=== PATIENT | female | born 1965 | race Caucasian/White ===

== ENCOUNTER 2018-12-17 12:37 | Emergency (ER) | payer OTHER ==
[2018-12-17 13:45] VITALS: BP 106/81
--- NOTE | 2018-12-17 14:09 | UC ---
Respiratory Complaint HPI - HPI Summary HPI Summary: 53 ypo female with 3 days worth of sore throat last week that resolve < 48 hours ago developed fatigue/myalgia/nasal congestion and sore throat SHEPARD neighbor has flu - History of Current Complaint Chief Complaint: UCRespiratory Stated Complaint: SORE THROAT Time Seen by Provider: 12/17/18 13:35 Hx Obtained From: Patient Onset/Duration: Gradual Onset, Lasting Days Severity Initially: Mild Severity Currently: Moderate Pain Intensity: 5 Pain Scale Used: 0-10 Numeric Character: Cough: Nonproductive Aggravating Factors: Nothing Alleviating Factors: Nothing Associated Signs And Symptoms: Positive: Fever - tayler, Chills, URI, Nasal Congestion, Sinus Discomfort - Allergies/Home Medications Allergies/Adverse Reactions: Allergies Allergy/AdvReac Type Severity Reaction Status Date / Time No Known Allergies Allergy Verified 12/17/18 13:37 Home Medications: Home Medications Acetaminophen [Tylenol] 325 mg PO Q8HR PRN 12/17/18 [History Confirmed 12/17/18] Escitalopram * [Lexapro 10 mg (NF)] 5 mg PO DAILY 12/17/18 [History Confirmed ] Levothyroxine TAB* [Synthroid TAB*] 88 mcg PO 0800 12/17/18 [History Confirmed 12/17/18] Vitamin B Complex [Super B-50 Complex] 1 each PO DAILY 12/17/18 [History Confirmed 12/17/18] PMH/Surg Hx/FS Hx/Imm Hx Previously Healthy: Yes Cancer History: Other Other Cancer History: thyroid - Surgical History Surgical History: Yes Surgery Procedure, Year, and Place: THYROIDECTOMY DUE TO THYROID CA 2009 - Family History Known Family History: Positive: Hypertension - Social History Alcohol Use: Rare Substance Use Type: None Smoking Status (MU): Never Smoked Tobacco Review of Systems All Other Systems Reviewed And Are Negative: Yes Constitutional: Positive: Fever, Chills, Fatigue Skin: Positive: Negative Eyes: Positive: Negative ENT: Positive: Nasal Discharge, Sinus Pain/Tenderness Respiratory: Positive: Cough Cardiovascular: Positive: Negative Gastrointestinal: Positive: Negative Genitourinary: Positive: Negative Motor: Positive: Negative Neurovascular: Positive: Negative Musculoskeletal: Positive: Myalgia Neurological: Positive: Headache Psychological: Positive: Negative Physical Exam Triage Information Reviewed: Yes Appearance: Well-Appearing, No Pain Distress, Well-Nourished Vital Signs: Initial Vital Signs Temp 99.3 F 12/17/18 13:40 Pulse 82 12/17/18 13:40 Resp 18 12/17/18 13:40 BP 106/81 12/17/18 13:40 Pulse Ox 95 12/17/18 13:40 Vital Signs Reviewed: Yes Eyes: Positive: Conjunctiva Clear ENT: Positive: Hearing grossly normal, Pharyngeal erythema, Nasal congestion, Uvula midline. Negative: Nasal drainage, Tonsillar swelling, Tonsillar exudate , Trismus, Muffled voice, Hoarse voice, Sinus tenderness Dental Exam: Normal Neck: Positive: Supple, Nontender, No Lymphadenopathy Respiratory: Positive: Lungs clear, Normal breath sounds, No respiratory distress, No accessory muscle use Cardiovascular: Positive: RRR, No Murmur Musculoskeletal: Positive: ROM Intact, No Edema Neurological: Positive: Alert Psychological Exam: Normal Skin Exam: Normal Respiratory Course/Dx - Course Course Of Treatment: influenza (-), strep (-) - Differential Dx/Diagnosis Provider Diagnosis: Influenza-like illness Discharge - Sign-Out/Discharge Documenting (check all that apply): Patient Departure All imaging exams completed and their final reports reviewed: No Studies - Discharge Plan Condition: Stable Disposition: HOME Patient Education Materials: Viral Syndrome (ED) Referrals: Stephania Mcelroy MD [Primary Care Provider] - 4 Days (if not better) Additional Instructions: rest fluids tylenol or advil if needed for pain/fever - Billing Disposition and Condition Condition: STABLE Disposition: Home
[2018-12-17 14:20] LABS: Influenza A Molecular NEGATIVE (Negative); Influenza B Molecular NEGATIVE (Negative)
== END 2018-12-17 14:25 | disposition home or self-care (01) ==
LOC: UCEAST 12:37
DX: R53.83 Other fatigue (principal); M79.10 Myalgia, unspecified site; R09.81 Nasal congestion; J02.9 Acute pharyngitis, unspecified; R51 Headache; R50.9 Fever, unspecified; R05 Cough
CPT/HCPCS: 87651; 99201; G0463